=== PATIENT | female | born 1985 | race African-American/Black ===

== ENCOUNTER 2019-02-03 11:53 | Inpatient (IN) | payer MEDICAID ==
[~2019-02-03] VITALS: Ht 156.2 cm; Wt 73.5 kg
[2019-02-03] MEDS ORDERED: SODIUM CHLORIDE 0.9% 1,000 ML IV ONE (13:00)
[2019-02-03] MEDS ORDERED: DICYCLOMINE HCL 10MG/ML 2ML AMP IM ONE (13:00)
[2019-02-03 13:04] LABS: BASOPHILS % 0.4 % (0.0-2.0); EOSINOPHILS % 0.4 % (0.0-5.0); HEMATOCRIT. 42.2 % (36.0-48.0); HEMOGLOBIN. 14.7 g/dL (12.0-16.0); LYMPHOCYTES % 25.9 % (20.0-50.0); MEAN CORPUSCULAR HEMOGLOBIN 31.7 pg (28.0-32.0); MEAN CORPUSCULAR VOLUME 90.9 fL (81.0-99.0); MEAN PLATELET VOLUME 7.4 fl (7.4-10.4); MONOCYTES % 4.3 % (2.0-8.0); PLATELET 211 x1000/uL (130-400); RED BLOOD CELL COUNT 4.65 mill/uL (4.2-5.4); RED CELL DISTRIBUTION WIDTH 13.9 % (11.6-14.6)
[2019-02-03 13:11] LABS: CHLORIDE 106 mEq/L (98-107)
[2019-02-03 13:12] LABS: PROTHROMBIN TIME 10.3 sec (9.6-11.0)
[2019-02-03 15:41] LABS: CLARITY URINE CLOUDY (CLEAR); COLOR URINE YELLOW (YELLOW); KETONES URINE TRACE (NEGATIVE); LEUKOCYTE ESTERASE URINE NEGATIVE (NEGATIVE); NITRITE URINE NEGATIVE (NEGATIVE); OCCULT BLOOD URINE NEGATIVE (NEGATIVE); PH URINE 5.5 (4.5-8.0); PROTEIN URINE NEGATIVE (NEGATIVE); SPECIFIC GRAVITY URINE 1.025 (1.005-1.030); UROBILINOGEN URINE 0.2 E.U./dL (0.2-1.0)
[2019-02-03] MEDS ORDERED: IOHEXOL-300 100 ML BOTTLE ONE (18:30)
[2019-02-03 19:04] LABS: HEMATOCRIT 41.2 % (36.0-48.0)
[2019-02-03] MEDS ORDERED: SODIUM CHLORIDE 0.9% 1,000 ML IV NR (19:04)
[2019-02-03 23:45] VITALS: BP 124/98
[2019-02-04] VITALS: BP 124/78
[2019-02-04 04:00] VITALS: BP 128/76
[2019-02-04] MEDS ORDERED: PROPOFOL 200MG/20ML VIAL IV ONE (07:08)
[2019-02-04] MEDS ORDERED: ROCURONIUM BROMIDE 10MG/ML VIAL 5ML IV ONE ×2 (07:08→08:11)
[2019-02-04] MEDS ORDERED: FENTANYL CITRATE/PF 50MCG/ML 2ML VIAL ONE (07:12)
[2019-02-04] MEDS ORDERED: LIDOCAINE HCL/PF 1% 10 MG/ML 5ML VIAL ONE (07:13)
[2019-02-04] MEDS ORDERED: MIDAZOLAM HCL 2 MG/2 ML VIAL ONE (07:13)
[2019-02-04] MEDS ORDERED: CEFAZOLIN SODIUM 1000MG/VIAL ONE (07:20)
[2019-02-04] MEDS ORDERED: DEXAMETHASONE 4MG/ML 1ML VIAL ONE (07:33)
[2019-02-04] MEDS ORDERED: ALBUTEROL 90MCG/PUFF 17GM INHALER INH ONE (07:39)
[2019-02-04] MEDS ORDERED: ONDANSETRON HCL 4MG/2ML INJ ONE (07:43)
[2019-02-04] MEDS ORDERED: METOCLOPRAMIDE HCL 10MG/2ML VIAL ONE (07:44)
[2019-02-04] MEDS ORDERED: MEPERIDINE HCL/PF 25MG/ML CPJ IV PRN (08:15)
[2019-02-04] MEDS ORDERED: ONDANSETRON HCL 4MG/2ML INJ IV PRN (08:15)
[2019-02-04] MEDS ORDERED: LABETALOL 5MG/ML SYR 20 MG/4 ML SYRINGE IV PRN (08:15)
[2019-02-04] MEDS ORDERED: HYDROMORPHONE HCL/PF 2MG/ML CPJ IV PRN (08:15)
[2019-02-04] MEDS ORDERED: SKIN ADHESIVE 0.7 GM EA TOP ONE (08:18)
[2019-02-04] MEDS ORDERED: NEOSTIGMINE METHYLSULFATE 1MG/ML 10 ML VIAL ONE (09:03)
[2019-02-04] MEDS ORDERED: GLYCOPYRROLATE 0.2 MG/ML 2ML VIAL ONE (09:04)
[2019-02-04] MEDS ORDERED: HYDROMORPHONE HCL/PF 2MG/ML (OR) ONE (09:18)
[2019-02-04] MEDS ORDERED: NALOXONE INJ IV PRN (09:45)
[2019-02-04] MEDS ORDERED: HYDROMORPHONE PCA 10MG/50ML IV PRN (09:45)
[2019-02-04] MEDS ORDERED: ONDANSETRON INJ IV PRN (09:45)
[2019-02-04 12:00] VITALS: BP 117/68
[2019-02-04 16:00] VITALS: BP 109/69
[2019-02-04 17:39] LABS: HEMATOCRIT 39.3 % (36.0-48.0); HEMOGLOBIN 13.3 g/dL (12.0-16.0); MEAN CORPUSCULAR HEMOGLOBIN 31.3 pg (28.0-32.0); MEAN CORPUSCULAR VOLUME 92.4 fL (81.0-99.0); PLATELET 206 x1000/uL (130-400); RED BLOOD CELL COUNT 4.25 mill/uL (4.2-5.4); RED CELL DISTRIBUTION WIDTH 13.8 % (11.6-14.6)
[2019-02-04 20:00] VITALS: BP 109/62
[2019-02-05] VITALS: BP 110/70
[2019-02-05 04:00] VITALS: BP 102/55
[2019-02-05 07:37] LABS: BASOPHILS % 0.3 % (0.0-2.0); EOSINOPHILS % 0.1 % (0.0-5.0); HEMATOCRIT. 37.2 % (36.0-48.0); HEMOGLOBIN. 12.7 g/dL (12.0-16.0); MEAN CORPUSCULAR HEMOGLOBIN 31.3 pg (28.0-32.0); MEAN CORPUSCULAR VOLUME 92.1 fL (81.0-99.0); MEAN PLATELET VOLUME 8.1 fl (7.4-10.4); MONOCYTES % 4.4 % (2.0-8.0); NEUTROPHILS % 72.2 % (40.0-76.0); PLATELET 188 x1000/uL (130-400); RED BLOOD CELL COUNT 4.05 mill/uL (4.2-5.4)
[2019-02-05 08:00] VITALS: BP 113/63
[2019-02-05] MEDS: IBUPROFEN 800MG TABLET PO PRN ×2 (10:00→20:11)
[2019-02-05 11:45] VITALS: BP 101/63
[2019-02-05 16:00] VITALS: BP 99/62
[2019-02-05 20:00] VITALS: BP 104/68
[2019-02-05] MEDS ORDERED: BISACODYL 5MG TABLET PO PRN (23:45)
[2019-02-06] VITALS: BP 115/67
[2019-02-06 04:00] VITALS: BP 98/57
[2019-02-06 08:00] VITALS: BP 104/59
[2019-02-06] MEDS: IBUPROFEN 800MG TABLET PO PRN (09:22)
[2019-02-06 14:24] VITALS: BP 102/64
== END 2019-02-06 16:00 | disposition home or self-care (01) | DRG 513 ==
LOC: ER 11:53 → 6EST 17:45 → ENRESERV 23:07
PROVIDERS: ADMIT Obstetrics & Gynecology; ATTEND Emergency Medicine
PROC: 0UQ10ZZ Repair Left Ovary, Open Approach (ICD-10-PCS; principal; 2019-02-04)
PROC: 0WJJ4ZZ Inspection of Pelvic Cavity, Percutaneous Endoscopic Approach (ICD-10-PCS; 2019-02-04)
PROC: 0W9G0ZZ Drainage of Peritoneal Cavity, Open Approach (ICD-10-PCS; 2019-02-04)
DX: N83.202 Unspecified ovarian cyst, left side (principal); K66.1 Hemoperitoneum; F17.210 Nicotine dependence, cigarettes, uncomplicated
CPT/HCPCS: 36415; 74177; 76830; 76856; 85014; 85018; 85027; 86850; 86900; 86920; 99285; J0500; J0690; J1100; J1170; J2175; J2250; J2405; J2704; J2710; J2765; J3010; J3490; J7030; Q9967

== ENCOUNTER 2023-11-01 09:31 | Emergency (ER) | payer MEDICAID ==
[~2023-11-01] VITALS: Ht 157.5 cm; Wt 55.0 kg
[2023-11-01 10:28] VITALS: O2SAT 98
[2023-11-01 10:33] LABS: BASOPHILS % 0.4 % (0.0-2.0); EOSINOPHILS % 0.3 % (0.0-5.0); HEMATOCRIT. 46.7 % (36.0-48.0); HEMOGLOBIN. 16.2 g/dL (12.0-16.0); LYMPHOCYTES % 22.4 % (20.0-50.0); MEAN CORPUSCULAR HGB CONC 34.7 g/dL (31.0-37.0); MEAN CORPUSCULAR VOLUME 92.2 fL (81.0-99.0); MEAN PLATELET VOLUME 7.6 fl (7.4-10.4); NEUTROPHILS % 69.9 % (40.0-76.0); PLATELET 282 x1000/uL (130-400); RED BLOOD CELL COUNT 5.07 mill/uL (4.2-5.4); RED CELL DISTRIBUTION WIDTH 13.9 % (11.6-14.6); WHITE BLOOD COUNT 6.3 x1000/uL (4.5-11.0)
[2023-11-01] MEDS: PANTOPRAZOLE 40MG DR TABLET PO ONE (10:52)
[2023-11-01 10:54] LABS: CHLORIDE 105 mEq/L (98-107); POTASSIUM 3.5 mEq/L (3.5-5.1); SODIUM 137 mEq/L (136-145)
[2023-11-01 10:56] LABS: CALCIUM 9.7 mg/dL (8.7-10.4); CARBON DIOXIDE 24 mEq/L (21-32); PROTHROMBIN TIME 10.9 sec (9.6-11.0)
[2023-11-01 11:01] LABS: CREATININE 1.1 mg/dL (0.6-1.0); GLUCOSE 84 mg/dL (70-105); UREA NITROGEN BLOOD 7 mg/dL (9-23)
[2023-11-01 11:02] LABS: ACETAMINOPHEN < 2 ug/mL (10-30); ALANINE AMINOTRANSFERASE 10 IU/L (10-49); ASPARTATE AMINOTRANSFERASE 16 IU/L (<34)
[2023-11-01 11:03] LABS: ALBUMIN 5.3 g/dL (3.2-4.8); PROTEIN TOTAL 8.5 g/dL (6.0-8.3)
[2023-11-01 11:21] LABS: HCG SCREEN NEGATIVE
[2023-11-01 11:29] LABS: *AMPHETAMINES SCREEN URINE NEGATIVE (NEGATIVE); *BARBITURATES SCREEN URINE NEGATIVE (NEGATIVE); *BENZODIAZEPINES SCREEN URINE NEGATIVE (NEGATIVE); *COCAINE SCREEN URINE NEGATIVE (NEGATIVE); METHADONE URINE SCREEN Neg (NEGATIVE); OPIATES URINE SCREEN NEGATIVE (NEGATIVE)
[2023-11-01 11:30] LABS: CANNABINOID URINE SCREEN NEGATIVE (NEGATIVE); ECSTASY MDMA SCREEN URINE NEGATIVE (NEGATIVE); PHENCYCLIDINE URINE SCREEN NEGATIVE (NEGATIVE)
[2023-11-01 12:02] LABS: ETHANOL BLOOD < 10 mg/dL (<10)
[2023-11-01 14:23] LABS: CHLORIDE 107 mEq/L (98-107); SODIUM 138 mEq/L (136-145)
[2023-11-01 14:24] LABS: CARBON DIOXIDE 23 mEq/L (21-32)
[2023-11-01 14:25] LABS: CALCIUM 9.7 mg/dL (8.7-10.4)
[2023-11-01 14:29] LABS: CREATININE 1.1 mg/dL (0.6-1.0); GLUCOSE 97 mg/dL (70-105); UREA NITROGEN BLOOD 8 mg/dL (9-23)
[2023-11-01] MEDS: LORAZEPAM 1MG TABLET PO ONE (15:15)
[2023-11-01] MEDS: OLANZAPINE 5MG TABLET ODT PO NR (15:30)
[2023-11-03] MEDS: FLUOXETINE HCL 20MG CAPSULE PO NR (10:30)
[2023-11-03 15:21] VITALS: BP 131/81; PULSE 78; RESP 18; TEMP 98.6
[2023-11-03] MEDS ORDERED: RISPERIDONE 1MG TABLET PO SCH (21:00)
== END 2023-11-03 15:22 ==
LOC: ER 09:33
DX: R45.851 Suicidal ideations (principal); F41.9 Anxiety disorder, unspecified; F32.A Depression, unspecified; Z20.822 Contact with and (suspected) exposure to COVID-19; Z88.0 Allergy status to penicillin; Z88.5 Allergy status to narcotic agent
CPT/HCPCS: 36415; 80048; 80053; 80305; 80307; 80320; 80329; 84703; 85025; 87426; 99285; G0480

== ENCOUNTER 2024-01-25 23:54 | Emergency (ER) | payer MEDICAID ==
[~2024-01-25] VITALS: Ht 167.6 cm; Wt 70.0 kg
[2024-01-26 00:02] VITALS: TEMP 98.6; O2SAT 98
[2024-01-26] MEDS ORDERED: DOCU-138 MT (00:27)
[2024-01-26] MEDS ORDERED: HYDR25SU37 RC (00:27)
[2024-01-26] MEDS ORDERED: ACET-2708 MT (00:27)
[2024-01-26 00:28] VITALS: BP 119/75; PULSE 96; RESP 10
== END 2024-01-26 00:43 | disposition home or self-care (01) ==
LOC: ER 23:54
DX: K64.4 Residual hemorrhoidal skin tags (principal); F41.9 Anxiety disorder, unspecified; F32.9 Major depressive disorder, single episode, unspecified; E78.00 Pure hypercholesterolemia, unspecified; Z79.899 Other long term (current) drug therapy
CPT/HCPCS: 99283